=== PATIENT | female | born 1985 | race Caucasian/White ===

== ENCOUNTER 2017-04-19 15:51 | Outpatient (CLI) | payer MEDICAID ==
[~2017-04-19] VITALS: Ht 167.6 cm; Wt 99.5 kg
[2017-04-19 16:16] VITALS: Ht 167.6 cm; Wt 99.5 kg
[2017-04-19 16:17] VITALS: BP 131/73; PULSE 81; RESP 20
[2017-04-19 16:44] LABS: ADD SCAN DIFF NO
[2017-04-19 16:49] LABS: ADD UMIC YES; UR ASCORBIC ACID NEGATIVE (NEGATIVE); UR BACTERIA FEW /HPF (NONE SEEN); UR BILIRUBIN (Dip) NEGATIVE (NEGATIVE); UR BLOOD (Dip) NEGATIVE (NEGATIVE); UR CLARITY CLOUDY (CLEAR); UR COLOR YELLOW (YELLOW); UR GLUCOSE (Dip) NEGATIVE (NEGATIVE); UR KETONES (Dip) NEGATIVE (NEGATIVE); UR LEUKOCYTE ESTERASE (Dip) 1+ Leu/ul (NEGATIVE); UR MUCUS FEW /HPF (NONE SEEN); UR NITRITE (Dip) NEGATIVE (NEGATIVE); UR RBC 1 /HPF (0-5); UR SPECIFIC GRAVITY (Dip) 1.024 (1.003-1.030); UR SQUAMOUS EPITHELIAL CELL MANY /HPF (FEW); UR TOTAL PROTEIN (Dip) NEGATIVE (NEGATIVE); UR UROBILINOGEN (Dip) NEGATIVE (NEGATIVE)
[2017-04-19 16:50] LABS: BASOPHILS % 0.4 % (0.0-2.0); EOSINOPHILS # 0.1 10^3/ul (0.0-0.5); EOSINOPHILS % 0.9 % (0.0-7.0); HEMATOCRIT 36.4 % (42.0-52.0); HEMOGLOBIN 12.1 g/dl (14.0-18.0); LYMPHOCYTES # 2.3 10^3/ul (0.8-2.9); LYMPHOCYTES % 22.3 % (15.0-51.0); MEAN CORPUSCULAR HEMOGLOBIN 29.2 pg (29.0-33.0); MEAN CORPUSCULAR HGB CONC 33.2 g/dl (32.0-37.0); MEAN CORPUSCULAR VOLUME 87.9 fl (82.0-101.0); MEAN PLATELET VOLUME 9.6 fl (7.4-10.4); MONOCYTE # 0.6 10^3/ul (0.3-0.9); MONOCYTES % 5.8 % (0.0-11.0); NEUTROPHIL # 7.2 10^3/ul (1.6-7.5); NEUTROPHILS % 70.1 % (39.0-77.0); PLATELET COUNT 352 10^3/UL (140-415); RED BLOOD COUNT 4.14 10^6/ul (4.70-6.10); RED CELL DISTRIBUTION WIDTH 14.3 % (11.5-14.5); WHITE BLOOD COUNT 10.2 10^3/ul (4.8-10.8)
--- NOTE | 2017-04-19 16:55 | RADRPT ---
PROCEDURE: US biophysical profile. CLINICAL INDICATION: Decreased motion. Hypertension. TECHNIQUE: Multiple sonographic images of the uterus were obtained. The images were revi ewed on a PACS workstation. COMPARISON: No prior studies are available for comparison. FINDINGS: There is a single live intrauterine gestation. heart rate is 137 beats per minute. The position is cephalic. The placenta is fundal grade II with no abruption or previa. The FABRICIO is 13.0 cm. (Normal = 5-20 cm.) Breathing Movement: 2 Gross Body Movement: 2 Tone: 2 Qualitative Amniotic Fluid Volume: 2 TOTAL: 8 IMPRESSION: 1. The biophysical score is 8/8. RPTAT: QQ .Elvin Hollis MD, MD Date Time Electronically viewed and signed by .Elvin Hollis MD, on 04/19/2017 16:55 .R/
--- NOTE | 2017-04-19 16:55 | RADRPT ---
PROCEDURE: US OB. CLINICAL INDICATION: Hypertension. Check size and dates. TECHNIQUE: Multiple sonographic images of the uterus were obtained. The images were revi ewed on a PACS workstation. COMPARISON: No prior studies are available for comparison. FINDINGS: There is a single live intrauterine gestation. heart rate is 154 beats per minute. Measurements were made in order to determine age. The results are as follows: BPD = 9.11 cm. HC = 32.00 cm. AC = 35.23 cm. FL = 7.29 cm. Estimated weight is 3397 +/- 510 grams. LMP growth percentile is 52 %. Menstrual age by ultrasound dates is 37 weeks 3 days. The estimated date of delivery is 05/07/2017. Position is cephalic and placenta is fundal grade II. There is no evidence for an abruption or place nta previa. IMPRESSION: 1. Single live intrauterine gestation of 37 weeks 3 days menstrual age by ultrasound dates. 2. The estimated date of delivery is 05/07/2017. RPTAT: QQ .Elvin Hollis MD, MD Date Time Electronically viewed and signed by .Elvin Hollis MD, on 04/19/2017 16:55 .R/
[2017-04-19 17:09] LABS: ALBUMIN 4.2 g/dl (3.3-4.9); ALBUMIN/GLOBULIN RATIO 1.35; BILIRUBIN,INDIRECT 0.1 mg/dl (0-1.1); BILIRUBIN,TOTAL 0.1 mg/dl (0.2-1.3); CALCIUM 9.3 mg/dl (8.4-10.2); CREATININE 0.73 mg/dl (0.61-1.24); POTASSIUM 3.5 mmol/L (3.5-5.1); TOTAL PROTEIN 7.3 g/dl (6.1-8.1); URIC ACID 5.6 mg/dl (3.1-7.9)
[2017-04-19 17:13] LABS: INR 0.91; PARTIAL THROMBOPLASTIN TIME 25.1 Sec (25.0-35.0); PROTIME 12.3 Sec (12.2-14.2)
--- NOTE | 2017-04-19 22:03 | TRIAGE ---
OB Triage Datetime Report Generated by CPN: 04/19/2017 22:02 Datetime: 04/19/2017 20:57 Stage of : OB Triage Datetime: 04/19/2017 20:53 Labor Evaluation Frequency: IRREGULAR Monitor Mode: External Duration (sec)2399: 50-60 Quality: Mild Pattern: Normal: <= 5 Contractions in 10 Minutes Resting Tone [place]: Relaxed Heart Rate FHR Baseline Rate: 135 Monitor Mode: External US FHR Baseline Changes: No Baseline Change Variability: Moderate 6-25 bpm Accelerations: 15X15 Decelerations: None Category: Category I Datetime: 04/19/2017 19:50 Vaginal Exam Dilatation (cms): 2.0 Effacement (%): 60 Station: -3 Exam By: Eugene MENENDEZ RN Vaginal Bleeding: None Cervix, Consistency: Firm Cervix, Position: Posterior Datetime: 04/19/2017 19:49 Assessment Type: Triage Maternal Assessment Level of Consciousness: Fully Conscious DTR's/Clonus: DTRs 2+; No Clonus Headache: Denies Blurred Vision: No Respiratory Effort: Unlabored; Regular Rhythm; Equal Expansion Nausea/Vomiting: Denies RUQ Epigastric Pain: Denies Lower Extremities Edema: None Degree: None Upper Extremities Edema: None Degree: None Facial Edema: None Fall Risk Assessment History of Falling: (0) No Secondary Diagnosis: (0) No Ambulatory Aid: (0) Bedrest/Nurse Assist IV Therapy: (0) No Gait: (0) Normal/Bedrest/Immobile Mental Status: (0) Oriented to Own Ability Fall Score: 0 Fall Risk Score Definition: No Risk: No action required Datetime: 04/19/2017 18:15 Labor Evaluation Frequency: 2-8 Monitor Mode: External Duration (sec)2399: 60-90 Quality: Mild Pattern: Normal: <= 5 Contractions in 10 Minutes Resting Tone [place]: Relaxed Heart Rate FHR Baseline Rate: 140 Monitor Mode: External US FHR Baseline Changes: No Baseline Change Variability: Moderate 6-25 bpm Accelerations: 15X15 Decelerations: None Category: Category I Pain Assessment Pain Scale: 0 Pain Presence: None/Denies Pain Type: N/A Pain Goal: 0 Membrane Status: Intact Datetime: 04/19/2017 17:52 Vaginal Exam Dilatation (cms): 2.0 Effacement (%): 60 Station: -2 Exam By: MAY Vaginal Bleeding: None Cervix, Consistency: Soft Cervix, Position: Posterior Presentation 'A': Cephalic Datetime: 04/19/2017 17:44 Labor Evaluation Frequency: 4-5 Monitor Mode: External Duration (sec)2399: 60-90 Quality: Mild Pattern: Normal: <= 5 Contractions in 10 Minutes Resting Tone [place]: Relaxed Heart Rate FHR Baseline Rate: 150 Monitor Mode: External US FHR Baseline Changes: No Baseline Change Variability: Moderate 6-25 bpm Accelerations: 15X15 Decelerations: None Category: Category I Pain Assessment Pain Scale: 0 Pain Presence: None/Denies Pain Type: N/A Pain Goal: 0 Membrane Status: Intact Datetime: 04/19/2017 17:15 Labor Evaluation Frequency: 2-7 Monitor Mode: External Duration (sec)2399: 60-90 Quality: Mild Pattern: Normal: <= 5 Contractions in 10 Minutes Resting Tone [place]: Relaxed Heart Rate FHR Baseline Rate: 140 Monitor Mode: External US FHR Baseline Changes: No Baseline Change Variability: Moderate 6-25 bpm Accelerations: 15X15 Decelerations: None Category: Category I Pain Assessment Pain Scale: 0 Pain Presence: None/Denies Pain Type: N/A Pain Goal: 0 Datetime: 04/19/2017 16:45 Labor Evaluation Frequency: 4-9 Monitor Mode: External Duration (sec)2399: 60-90 Quality: Mild Pattern: Normal: <= 5 Contractions in 10 Minutes Resting Tone [place]: Relaxed Heart Rate FHR Baseline Rate: 140 Monitor Mode: External US FHR Baseline Changes: No Baseline Change Variability: Moderate 6-25 bpm Accelerations: 15X15 Decelerations: None Category: Category I Pain Assessment Pain Scale: 0 Pain Presence: None/Denies Pain Type: N/A Pain Goal: 0 Membrane Status: Intact Datetime: 04/19/2017 16:20 Stage of : OB Triage Time of Arrival: 04/19/2017 16:10 EGA: 38.5 Arrived By: Ambulatory Arrived From: Dr. Gonzales Chief Complaint: ELEVATED BLOOD PRESSURE AT CLINIC Movement: Present Rupture of Membranes: Denies Vaginal Bleeding: None Vaginal Discharge: Denies Recent Sexual Intercouse: Denies Abdominal Trauma: Not Applicable Patient Complaints: Other Time Provider Notified: 04/19/2017 17:58 Provider Notified: DR. QUISPE Initial Plan: [facility] PANEL, EFW, BPP Maternal Assessment Level of Consciousness: Fully Conscious DTR's/Clonus: DTRs 2+; No Clonus Headache: Denies Blurred Vision: No Respiratory Effort: Unlabored; Regular Rhythm; Equal Expansion Nausea/Vomiting: Denies RUQ Epigastric Pain: Denies Lower Extremities Edema: None Degree: None Upper Extremities Edema: None Degree: None Facial Edema: None Temperature Route: Axillary Fall Risk Assessment History of Falling: (0) No Secondary Diagnosis: (0) No Ambulatory Aid: (0) Bedrest/Nurse Assist IV Therapy: (0) No Gait: (0) Normal/Bedrest/Immobile Mental Status: (0) Oriented to Own Ability Fall Score: 0 Fall Risk Score Definition: No Risk: No action required Datetime: 04/19/2017 16:13 Stage of : OB Triage Monitor Mode: External Monitor Mode: External US Pain Assessment Pain Scale: 0 Pain Presence: None/Denies Pain Type: N/A Pain Goal: 0 Membrane Status: Intact
--- NOTE | 2017-04-26 16:26 | HP ---
DATE OF ADMISSION: 04/19/2017 CHIEF COMPLAINT: She was seen in the clinic today. Her blood pressure was 131/73, was sent for further evaluation in hospital. HISTORY OF PRESENT ILLNESS: The patient is a 31-year-old -0- 1-0 with single intrauterine at 38 weeks, was seen in clinic today, and her blood pressure per patient was 131/73, was sent for further evaluation to hospital. She has history of elevated blood pressure one week ago too. She states good movement. She denies nausea, vomiting, shortness of breath, chest pain, headache, visual changes, vaginal bleeding, leakage of fluid, urinary or GI symptoms. PHYSICAL EXAMINATION: VITAL SIGNS: Blood pressure 110-120/72-76, pulse rate 80 per minute, respiratory rate 18 per minute, temperature 98.3. GENERAL APPEARANCE: Comfortable, no acute distress. Appropriate mood and affect. HEART: Regular rhythm and rate. No murmur. LUNGS: Clear to auscultation bilaterally. ABDOMEN: Soft, nontender. Uterine fundal height 38 weeks. FLANK: No CVA tenderness bilaterally. EXTREMITIES: Mild edema. No varicose veins, thigh or calf tenderness bilaterally. Homans sign is negative. HEART RATE: 135 bpm, moderate variability with acceleration, no deceleration, category 1. UTERINE CONTRACTIONS: Occasional. STERILE VAGINAL EXAM: 2, 60, minus 2, cephalic, intact. ASSESSMENT AND PLAN: A 31-year-old 2 para 0-0-1-0 with single intrauterine at 38 weeks with gestational hypertension. Per patient, had elevated blood pressure last week and today's blood pressure in clinic was 131/73. All of her blood pressures during triage observation were normal. CBC, CMP, uric acid normal. Ultrasound performed which revealed biophysical profile of 8/8, FABRICIO of 13. Urinalysis was normal without urine proteinuria. She has occasional uterine contractions. Repeat exam in two hours revealed no cervical changes. Signs and symptoms of labor, preeclampsia and kick count discussed in detail with patient. She expressed understanding. All of her questions answered. She is discharged home in stable condition with follow up with her primary CLINICAL LAB TECHNOLOGIST. I strongly recommend her back to triage if she has regular uterine contractions. Dictated By: Flavia Swenson MD /soto/ec /Document#: [id number] MTDD
== END 2017-04-19 20:57 | disposition home or self-care (01) ==
LOC: EDSEX → OBT 15:51 → L-D 16:11 → OBT 20:57
PROVIDERS: ATTEND Obstetrics & Gynecology
DX: O16.3 Unspecified maternal hypertension, third trimester (principal); Z3A.38 38 weeks gestation of pregnancy
CPT/HCPCS: 36415; 76815; 76818; 80053; 81001; 84560; 85025; 85384; 85610; 85730; 87086; Z7500; G0463

== ENCOUNTER 2017-04-26 17:35 | Inpatient (IN) | payer MEDICAID ==
[~2017-04-26] VITALS: Ht 167.6 cm; Wt 100.6 kg
[2017-04-26 17:55] VITALS: Ht 167.6 cm; Wt 100.6 kg
[2017-04-26] MEDS ORDERED: OXYTOCIN 30 UNITS/LR 500 ML IV SCH (18:00)
[2017-04-26] MEDS ORDERED: IBUPROFEN 600 MG TAB PO PRN (18:00)
[2017-04-26] MEDS ORDERED: METHYLERGONOVINE 0.2 MG INJ IM PRN (18:00)
[2017-04-26] MEDS ORDERED: LACTATED RINGER'S 1,000 ML IV PRN (18:00)
[2017-04-26] MEDS ORDERED: LIDOCAINE 1% (MPF) 30 ML INJ INJ PRN (18:00)
[2017-04-26] MEDS ORDERED: CARBOPROST 250 MCG INJ IM PRN (18:00)
[2017-04-26] MEDS ORDERED: MISOPROSTOL 200 MCG TAB PR PRN (18:00)
[2017-04-26] MEDS ORDERED: BUTORPHANOL 2 MG INJ IV PRN (18:00)
[2017-04-26] MEDS ORDERED: OXYTOCIN 30 UNITS/LR 500 ML IV PRN (18:00)
[2017-04-26] MEDS: LACTATED RINGER'S 1,000 ML IV SCH (18:49)
--- NOTE | 2017-04-26 19:02 | RADRPT ---
PROCEDURE: Obstetrical ultrasound CLINICAL INDICATION: Induction of labor TECHNIQUE: Multiple sonographic images of the pelvis were obtained. The images were reviewed on a PACS workstation. COMPARISON: Obstetrical ultrasound from 04/19/2017 FINDINGS: The cervix is not well visualized. There is a single viable intrauterine gestation. Cardiac activity is present with 141 beats per minute. There is a vertex presentation. The placenta is fundal. There is no evidence for an abruption or placenta previa. There is a subjectively normal amount of amniotic fluid. Measurements were made in order to determine age. The results are as follows (cm): BPD =9.27 HC =32.86 AC =35.21 FL =7.17 Estimated gestational age by ultrasound of approximately 37 weeks, 5 days. The estimated date of delivery by ultrasound is 05/12/2017. Estimated gestational age by LMP of approximately 39 weeks, 5 days. The estimated date of delivery by LMP is 04/28/2017. EFW = 3430 grams (38th percentile) IMPRESSION: Single viable intrauterine gestation of approximately 37 weeks, 5 days . The estimated date of delivery is 05/12/2017 . Dating by ultrasound is within 2 weeks of dating by LMP. Cephalic presentation. Estimated weight is in the 38th percentile. RPTAT: EE Physician Natalio Date Time Electronically viewed and signed by Physician Natalio on 04/26/2017 19:01 SHEA
[2017-04-26 19:07] LABS: ADD SCAN DIFF NO
[2017-04-26 19:09] LABS: BASOPHILS % 0.3 % (0.0-2.0); EOSINOPHILS # 0.1 10^3/ul (0.0-0.5); EOSINOPHILS % 0.8 % (0.0-7.0); HEMATOCRIT 36.3 % (37.0-47.0); HEMOGLOBIN 12.2 g/dl (12.0-16.0); LYMPHOCYTES # 2.7 10^3/ul (0.8-2.9); MEAN CORPUSCULAR HEMOGLOBIN 29.6 pg (29.0-33.0); MEAN CORPUSCULAR HGB CONC 33.6 g/dl (32.0-37.0); MEAN CORPUSCULAR VOLUME 88.1 fl (82.0-101.0); MEAN PLATELET VOLUME 9.7 fl (7.4-10.4); MONOCYTE # 0.8 10^3/ul (0.3-0.9); MONOCYTES % 6.7 % (0.0-11.0); NEUTROPHILS % 68.2 % (39.0-77.0); PLATELET COUNT 363 10^3/UL (140-415); RED BLOOD COUNT 4.12 10^6/ul (4.20-5.40); RED CELL DISTRIBUTION WIDTH 14.3 % (11.5-14.5); WHITE BLOOD COUNT 11.8 10^3/ul (4.8-10.8)
[2017-04-26 19:21] LABS: BARBITURATES Negative (NEGATIVE); BENZODIAZEPINES Negative (NEGATIVE); CANNABINOIDS Negative (NEGATIVE); COCAINE Negative (NEGATIVE); OPIATES Negative (NEGATIVE)
[2017-04-26 19:29] LABS: INR 0.9; PROTIME 12.1 Sec (12.2-14.2); PT RATIO 0.9
[2017-04-26 19:30] LABS: PARTIAL THROMBOPLASTIN TIME 25.8 Sec (25.0-35.0)
[2017-04-26 19:40] LABS: ALANINE AMINOTRANSFERASE 24 IU/L (13-69); ALBUMIN 3.7 g/dl (3.3-4.9); ALBUMIN/GLOBULIN RATIO 0.97; ALKALINE PHOSPHATASE 163 IU/L (42-121); ANION GAP 21 (8-16); ASPARTATE AMINO TRANSFERASE 25 IU/L (15-46); BILIRUBIN,INDIRECT 0.1 mg/dl (0-1.1); BILIRUBIN,TOTAL 0.1 mg/dl (0.2-1.3); BLOOD UREA NITROGEN 14 mg/dl (7-20); CALCIUM 9.8 mg/dl (8.4-10.2); CARBON DIOXIDE 20 mmol/L (21-31); CHLORIDE 103 mmol/L (97-110); CREATININE 0.68 mg/dl (0.44-1.00); GLUCOSE 87 mg/dl (70-220); POTASSIUM 4.4 mmol/L (3.5-5.1); SODIUM 140 mmol/L (135-144); TOTAL PROTEIN 7.5 g/dl (6.1-8.1)
[2017-04-26 21:21] LABS: ADD UMIC NO; UR ASCORBIC ACID NEGATIVE (NEGATIVE); UR BILIRUBIN (Dip) NEGATIVE (NEGATIVE); UR BLOOD (Dip) NEGATIVE (NEGATIVE); UR CLARITY CLEAR (CLEAR); UR COLOR YELLOW (YELLOW); UR GLUCOSE (Dip) NEGATIVE (NEGATIVE); UR KETONES (Dip) NEGATIVE (NEGATIVE); UR LEUKOCYTE ESTERASE (Dip) NEGATIVE Leu/ul (NEGATIVE); UR NITRITE (Dip) NEGATIVE (NEGATIVE); UR TOTAL PROTEIN (Dip) NEGATIVE (NEGATIVE); UR UROBILINOGEN (Dip) NEGATIVE (NEGATIVE)
[2017-04-26] MEDS ORDERED: MISOPROSTOL 25 MCG CAPSULE PO PRN (23:00)
[2017-04-27] MEDS ORDERED: OXYTOCIN 30 UNITS/LR 500 ML IV SCH (02:00)
[2017-04-27] MEDS: LACTATED RINGER'S 1,000 ML IV SCH ×2 (02:21→11:47)
[2017-04-27] MEDS ORDERED: FENTAnyl 2MCG/ML-ROPIV 0.2% 100 ML ONE (09:30)
[2017-04-27] MEDS ORDERED: NALOXONE (0.4 MG/ML) INJ IV PRN (10:30)
[2017-04-27] MEDS ORDERED: DIPHENHYDRAMINE 50 MG INJ IV PRN (10:30)
[2017-04-27] MEDS ORDERED: FENTAnyl 2MCG/ML-ROPIV 0.2% 100 ML BAG EPI SCH (10:30)
[2017-04-27] MEDS ORDERED: ONDANSETRON 4 MG INJ IV PRN (10:30)
[2017-04-27] MEDS ORDERED: HYDROmorphONE 1 MG/ML SYG IV PRN ×2 (10:30)
--- NOTE | 2017-04-27 17:21 | HP ---
Date/Time of Note Date/Time of Note DATE: 04/27/17 TIME: 17:20 OB - History Hx of Present Free Text/Dictation 39+ : 1 Para: 0 Care: Good Care Obstetrical Complications: None Medical Complications: None Past Family/Social History * Past Medical, Surgical, Family and Obstetric Histories reviewed from chart. OB Admission Exam Physical Exam Extremities: Normal Cervical Dilatation: 3cm Effacement: 75% Station: -1 Membranes: Intact Heart Rate: 140's Accelerations: Accelerations Present Decelerations: No Decelerations Varibility: Moderate Contractions on Admission: 6-10 Minutes Apart Last 72 hours Lab Results CBC & BMP 04/26/17 18:55 Liver Function Test 04/26/17 18:55 Alanine Aminotransferase (ALT/SGPT) 24 Albumin 3.7 Alkaline Phosphatase 163 H Aspartate Amino Transf (AST/SGOT) 25 Direct Bilirubin 0.00 Total Protein 7.5 OB Assessment/Plan Reason for admission: observation Induction Method: per Pitocin Protocol JAJA QUISPE M.D. Apr 27, 2017 17:21
--- NOTE | 2017-04-27 17:22 | LDN ---
Date/Time of Note Date/Time of Note DATE: 04/27/17 TIME: 17:21 Delivery Summary Assisted Vaginal Delivery: Vacuum (2 attempts) Episiotomy: No Anesthesia type: Epidural Estimated blood loss: 200 Sponge & Needle done & correct: Yes All needle counts correct: Yes Any foreign bodies felt in the: No Problems: Infant Delivery Information Sex Sex: female Apgars 1 Minute: 9 5 Minute: 9 Suctioning Nose & mouth suctioned at raul: Yes Delee suction performed: Yes Umbilical Cord Umbilical cord with: 3 Vessels Cord presentations: no nuchal cord Cord Blood was obtained: Yes JAJA QUISPE M.D. Apr 27, 2017 17:22
[2017-04-27] MEDS ORDERED: LACTATED RINGER'S 500 ML IV ONE (18:30)
[2017-04-27] MEDS ORDERED: ACETAMINOPHEN 325 MG TAB PO ONE (18:30)
[2017-04-27] MEDS ORDERED: CEFAZOLIN 2 GM/50 ML (PMX) 50 ML IVPB ONE (18:36)
[2017-04-27 18:46] LABS: ADD SCAN DIFF NO
[2017-04-27 18:50] LABS: BASOPHILS % 0.3 % (0.0-2.0); HEMATOCRIT 34.5 % (37.0-47.0); HEMOGLOBIN 11.4 g/dl (12.0-16.0); LYMPHOCYTES % 6.4 % (15.0-51.0); MEAN CORPUSCULAR HEMOGLOBIN 28.9 pg (29.0-33.0); MEAN CORPUSCULAR VOLUME 87.6 fl (82.0-101.0); MEAN PLATELET VOLUME 9.4 fl (7.4-10.4); MONOCYTES % 6.3 % (0.0-11.0); NEUTROPHIL # 13.7 10^3/ul (1.6-7.5); NEUTROPHILS % 86.3 % (39.0-77.0); PLATELET COUNT 287 10^3/UL (140-415); RED BLOOD COUNT 3.94 10^6/ul (4.20-5.40); RED CELL DISTRIBUTION WIDTH 14.2 % (11.5-14.5); WHITE BLOOD COUNT 15.8 10^3/ul (4.8-10.8)
[2017-04-27] MEDS: CEFAZOLIN 2 GM/50 ML (PMX) 50 ML IVPB SCH (18:52)
[2017-04-27 20:20] VITALS: BP 134/64; PULSE 55; RESP 18
[2017-04-27] MEDS: LACTATED RINGER'S 1,000 ML IV* SCH ×2 (20:20→22:26)
[2017-04-27] MEDS ORDERED: METHYLERGONOVINE 0.2 MG INJ IM PRN (20:30)
[2017-04-27] MEDS ORDERED: OXYTOCIN 30 UNITS/LR 500 ML IV PRN (20:30)
[2017-04-27] MEDS ORDERED: ZOLPIDEM 5 MG TAB PO PRN (20:30)
[2017-04-27] MEDS ORDERED: MISOPROSTOL 200 MCG TAB PR PRN (20:30)
[2017-04-27] MEDS ORDERED: OXYCODONE/ASPIRIN (4.88/325) TAB PO PRN (20:30)
[2017-04-27] MEDS ORDERED: LANOLIN 7 GM TUBE TOP PRN (20:30)
[2017-04-27] MEDS ORDERED: CARBOPROST 250 MCG INJ IM PRN (20:30)
[2017-04-27] MEDS ORDERED: SENNA/DOCUSATE NA (8.6MG/50MG) TAB PO PRN (20:30)
[2017-04-27] MEDS ORDERED: WITCH HAZEL/GLYCERIN PAD PR PRN (20:30)
[2017-04-27 21:00] VITALS: BP 106/55; PULSE 58; RESP 18
[2017-04-27] MEDS: SENNA/DOCUSATE NA (8.6MG/50MG) TAB PO SCH (21:11)
[2017-04-28 00:10] VITALS: BP 111/55; PULSE 58; RESP 20
[2017-04-28 04:00] VITALS: BP 110/56; RESP 18
[2017-04-28] MEDS: CEFAZOLIN 2 GM/50 ML (PMX) 50 ML IVPB SCH (04:02)
[2017-04-28] MEDS: IBUPROFEN 600 MG TAB PO SCH ×4 (04:02→17:22)
[2017-04-28 08:00] VITALS: BP 131/67; PULSE 71; RESP 19
[2017-04-28 08:33] LABS: ADD SCAN DIFF NO
[2017-04-28 08:37] LABS: BASOPHILS % 0.2 % (0.0-2.0); EOSINOPHILS # 0.1 10^3/ul (0.0-0.5); EOSINOPHILS % 0.8 % (0.0-7.0); HEMATOCRIT 29.9 % (37.0-47.0); HEMOGLOBIN 9.7 g/dl (12.0-16.0); LYMPHOCYTES # 2.3 10^3/ul (0.8-2.9); LYMPHOCYTES % 16.4 % (15.0-51.0); MEAN CORPUSCULAR HEMOGLOBIN 28.8 pg (29.0-33.0); MEAN CORPUSCULAR HGB CONC 32.4 g/dl (32.0-37.0); MEAN CORPUSCULAR VOLUME 88.7 fl (82.0-101.0); MEAN PLATELET VOLUME 9.8 fl (7.4-10.4); MONOCYTE # 0.9 10^3/ul (0.3-0.9); MONOCYTES % 6.7 % (0.0-11.0); NEUTROPHIL # 10.6 10^3/ul (1.6-7.5); NEUTROPHILS % 75.1 % (39.0-77.0); PLATELET COUNT 258 10^3/UL (140-415); RED BLOOD COUNT 3.37 10^6/ul (4.20-5.40); RED CELL DISTRIBUTION WIDTH 14.6 % (11.5-14.5); WHITE BLOOD COUNT 14.1 10^3/ul (4.8-10.8)
[2017-04-28] MEDS: SENNA/DOCUSATE NA (8.6MG/50MG) TAB PO SCH ×2 (10:12→21:01)
[2017-04-28] MEDS: LACTATED RINGER'S 1,000 ML IV* SCH (12:20)
[2017-04-28 16:00] VITALS: BP 138/86; PULSE 62; RESP 19
[2017-04-28 20:05] VITALS: BP 113/60; PULSE 63; RESP 18
[2017-04-29 04:00] VITALS: BP 110/58; PULSE 132; RESP 18
[2017-04-29] MEDS: IBUPROFEN 600 MG TAB PO SCH ×3 (06:45→12:55)
[2017-04-29] MEDS: LACTATED RINGER'S 1,000 ML IV* SCH (08:00)
[2017-04-29 08:30] VITALS: BP 140/74; RESP 16
[2017-04-29] MEDS: SENNA/DOCUSATE NA (8.6MG/50MG) TAB PO SCH (08:52)
[2017-04-29] MEDS ORDERED: DIPHTH/TET/ACEL PERTUSS (ADULT) 0.5 ML VIAL IM* ONE (09:00)
--- NOTE | 2017-04-29 10:19 | DS ---
Date/Time of Note Date/Time of Note DATE: 04/29/17 TIME: 10:18 Discharge Summary Admission/Discharge Info Admit Date/Time Apr 26, 2017 at 17:35 Discharge Date/Time april Patient Condition: Good Procedures vaginal delivery Hospital Course uneventful Home Meds No Active Prescriptions or Reported Meds Primary Care Provider Care Physician Regine Primary JAJA QUISPE M.D. Apr 29, 2017 10:19
--- NOTE | 2017-04-29 10:21 | QN ---
Documentation Comment late entry note: PPD#1 is stable afebrile voids +BM no VB vs stable Gen NAD Abd soft nt nd genitalia no blood at perinium --->discharge home JAJA QUISPE M.D. Apr 29, 2017 10:21
== END 2017-04-29 14:30 | disposition home or self-care (01) | DRG 775 ==
LOC: EDSEX 17:35 → L-D 17:35 → PP1 04-27 19:59 → EDSTATUS 04-28 17:33
PROVIDERS: ADMIT Obstetrics & Gynecology; ATTEND Obstetrics & Gynecology
PROC: 10E0XZZ Delivery of Products of Conception, External Approach (ICD-10-PCS; principal; 2017-04-27)
DX: O80 Encounter for full-term uncomplicated delivery (principal); Z37.0 Single live birth; Z3A.39 39 weeks gestation of pregnancy
CPT/HCPCS: 62319; 76815; 80053; 80307; 81003; 84560; 85025; 85610; 85730; 86592; 86900; 86901; 87340; 90715; J0690; J2590; J3010; J7120